=== PATIENT | male | born 1945 | race Caucasian/White ===

== ENCOUNTER → 2022-08-19 | Outpatient (CLI) | payer MEDICARE ==
--- NOTE | 2022-08-19 16:32 | US ---
EXAMINATION TYPE: US pelvic limited/left groin DATE OF EXAM: 08/19/2022 COMPARISON: NONE CLINICAL HISTORY: R10.2 PELVIC AND PERINEAL PAIN. soft tissue palpable area within the left groin are a TECHNIQUE: Transabdominal imaging over the pelvic area and left area of concern as directed by the p atient FINDINGS: Bladder wnl. Bilateral adnexae wnl. Over the patient's area of concern there does appear to be a hernia with peristalsing bowel. IMPRESSION: In the area patient's concern is left inguinal hernia containing loops of bowel. This can be further assessed with CT hernia protocol..
== END | disposition home or self-care (01) ==
LOC: RADUSWWP 14:10
PROVIDERS: ATTEND Family Medicine
DX: K40.90 Unilateral inguinal hernia, without obstruction or gangrene, not specified as recurrent (principal); R10.2 Pelvic and perineal pain
CPT/HCPCS: 76857